=== PATIENT | female | born 1930 | race African-American/Black ===

== ENCOUNTER 2018-05-18 11:16 | Emergency (ER) | payer OTHER ==
[~2018-05-18] VITALS: Ht 165.1 cm; Wt 62.6 kg
[2018-05-18] MEDS ORDERED: VASOTEC5 MG PO (11:41)
== END 2018-05-18 15:34 | disposition home or self-care (01) ==
LOC: ER 11:16 → EDBD 12:11 → ER 12:11
DX: M25.562 Pain in left knee (principal); M25.552 Pain in left hip; M54.5 Low back pain